=== PATIENT | female | born 1945 | race Caucasian/White ===

== ENCOUNTER → 2016-12-05 | Outpatient (CLI) | payer BC ==
[2016-12-05 13:31] LABS: BASO % 0.3 %; BASO ABS # 0.03 K/uL (0-0.2); COMPLETE YES; EOS % 1.1 %; IG% 0.1 %; LYMPH % 30.8 %; LYMPH ABS # 2.79 K/uL (1.2-3.4); MEAN CELL VOLUME 94.7 fL (80-100); MEAN CORPUSCULAR HEMOGLOBIN 30.3 pg (25-34); MEAN PLATELET VOLUME 11.2 fL (7.4-10.4); MONO % 5.4 %; NEUT % 62.3 %; PLATELET COUNT 237 K/uL (130-400); RED BLOOD COUNT 4.33 M/uL (4.2-5.4); WHITE BLOOD COUNT 9.07 K/uL (4.8-10.8)
[2016-12-05 13:51] LABS: ESTIMATED AVERAGE GLUCOSE 120 mg/dl; HA1C FLAG Normal (Normal)
[2016-12-05 13:53] LABS: AST/SGOT 12 U/L (15-37); BLOOD UREA NITROGEN 15 mg/dl (7-18); BUN/CREATININE RATIO 23.1 (10-20); CALCIUM 8.7 mg/dl (8.5-10.1); CARBON DIOXIDE 34 mmol/L (21-32); CHLORIDE 103 mmol/L (98-107); CREATININE 0.66 mg/dl (0.60-1.20); GLUCOSE 108 mg/dl (70-99); POTASSIUM 3.6 mmol/L (3.5-5.1); SODIUM 142 mmol/L (136-145)
[2016-12-05 13:58] LABS: ALB/GLOB RATIO 1.2 (0.9-2); ALKALINE PHOSPHATASE 73 U/L (45-117); ALT/SGPT 16 U/L (12-78); CHOLESTEROL 144 mg/dl (0-200); CHOLESTEROL/HDL RATIO 2.2; HDL CHOLESTEROL 65 mg/dl; LDL CHOLESTEROL CALCULATED 63 mg/dl; TRIGLYCERIDES 79 mg/dl (0-150); VERY LOW DENSITY LIPOPROT CALC 16 mg/dl
== END | disposition home or self-care (01) ==
LOC: C.LABMFLN 09:23
PROVIDERS: ATTEND Family Medicine
DX: I10 Essential (primary) hypertension (principal); E78.5 Hyperlipidemia, unspecified; R73.01 Impaired fasting glucose

== ENCOUNTER → 2017-04-10 | Outpatient (CLI) | payer BC | END | disposition home or self-care (01) | LOC: C.PAPS 07:56 | PROVIDERS: ATTEND Family Medicine | DX: Z12.4 Encounter for screening for malignant neoplasm of cervix (principal); R87.616 Satisfactory cervical smear but lacking transformation zone ==

== ENCOUNTER → 2017-10-11 | Outpatient (CLI) | payer BC | END | disposition home or self-care (01) | LOC: C.LABMFLN 18:18 | PROVIDERS: ATTEND Family Medicine | DX: R10.2 Pelvic and perineal pain (principal) ==

== ENCOUNTER → 2017-12-13 | Outpatient (CLI) | payer BC ==
[2017-12-13 18:04] LABS: BASO % 0.2 %; BASO ABS # 0.02 K/uL (0-0.2); EOS % 1.2 %; HEMATOCRIT 41.1 % (37-47); HEMOGLOBIN 13.1 g/dL (12.0-16.0); IG# 0.01 K/uL (0.00-0.02); LYMPH % 31.2 %; LYMPH ABS # 2.54 K/uL (1.2-3.4); MEAN CELL VOLUME 94.9 fL (80-100); MEAN CORPUSCULAR HEMOGLOBIN 30.3 pg (25-34); MEAN CORPUSCULAR HGB CONC 31.9 g/dl (32-36); MEAN PLATELET VOLUME 11.7 fL (7.4-10.4); MONO ABS # 0.41 K/uL (0.11-0.59); NEUT % 62.3 %; NEUT ABS # 5.07 K/uL (1.4-6.5); PLATELET COUNT 213 K/uL (130-400); RED CELL DISTRIBUTION WIDTH CV 13.7 % (11.5-14.5); RED CELL DISTRIBUTION WIDTH SD 47.9 fL (36.4-46.3); WHITE BLOOD COUNT 8.15 K/uL (4.8-10.8)
[2017-12-13 19:27] LABS: ALBUMIN 3.9 gm/dl (3.4-5.0); ALT/SGPT 17 U/L (12-78); AST/SGOT 16 U/L (15-37); BLOOD UREA NITROGEN 14 mg/dl (7-18); CALCIUM 8.8 mg/dl (8.5-10.1); CARBON DIOXIDE 31 mmol/L (21-32); CHOLESTEROL 137 mg/dl (0-200); CREATININE 0.68 mg/dl (0.60-1.20); GLUCOSE 102 mg/dl (70-99); POTASSIUM 3.4 mmol/L (3.5-5.1); SODIUM 139 mmol/L (136-145)
[2017-12-13 19:30] LABS: ALKALINE PHOSPHATASE 74 U/L (45-117); LDL CHOLESTEROL CALCULATED 55 mg/dl; TOTAL PROTEIN 7.4 gm/dl (6.4-8.2)
== END | disposition home or self-care (01) ==
LOC: C.LABMFLN 11:23
PROVIDERS: ATTEND Family Medicine
DX: I10 Essential (primary) hypertension (principal); E78.5 Hyperlipidemia, unspecified

== ENCOUNTER 2019-04-03 08:00 | Inpatient (IN) ==
[2019-03-14 18:13] LABS: Basophils # (auto) 0.01 K/uL (0-0.2); Basophils % (auto) 0.1 %; Eosinophils % (auto) 1.5 %; Hematocrit (blood only) 41.2 % (37-47); Hemoglobin 13.2 g/dL (12.0-16.0); Immature Granulocytes # (auto) 0.01 K/uL (0.00-0.02); Immature Granulocytes % (auto) 0.1 %; Lymphocytes # (auto) 2.31 K/uL (1.2-3.4); Lymphocytes % (auto) 34.5 %; Mean Corpuscular Hemoglobin 30.7 pg (25-34); Mean Corpuscular Volume 95.8 fL (80-100); Mean Platelet Volume 11.9 fL (7.4-10.4); Neutrophils # (auto) 3.86 K/uL (1.4-6.5); Neutrophils % (auto) 57.8 %; Platelet Count 198 K/uL (130-400); RDW Coefficient of Variation 13.4 % (11.5-14.5); RDW Standard Deviation 46.6 fL (36.4-46.3); White Blood Count 6.69 K/uL (4.8-10.8)
[2019-03-14 18:21] LABS: Appearance Urine Cloudy (Clear); Bacteria Urine Automated 1+ (Negative); Bilirubin Urine Negative (Negative); Blood Urine Negative (Negative); Color Urine Yellow; Epithelial Cell Urine Auto >30 /lpf (0-5); Glucose Urine UA Negative (Negative); Ketones Urine Negative (Negative); Leukocyte Esterase Urine Negative (Negative); Nitrite Urine Negative (Negative); Protein Urine Negative (Negative); RBC Urine Automated 0-4 /hpf (0-4); Specific Gravity Urine 1.017 (1.000-1.030); Urobilinogen Urine Negative (Negative); pH Urine 7.5 (4.5-7.5)
[2019-03-14 18:24] LABS: BUN Creatinine Ratio 24.5 (10-20); Blood Urea Nitrogen 16 mg/dl (7-18); Calcium 8.8 mg/dl (8.5-10.1); Carbon Dioxide 32 mmol/L (21-32); Chloride 101 mmol/L (98-107); Est GFR (African American) 99.5; Est GFR (Non-African American) 85.8; Glucose 80 mg/dl (70-99); Potassium 3.5 mmol/L (3.5-5.1); Sodium 140 mmol/L (136-145)
[2019-03-14 18:25] LABS: Partial Thromboplastin Time 27.3 Seconds (21.0-31.0); Prothrombin Time 10.4 Seconds (9.0-12.0)
[2019-03-15 07:47] LABS: Estimated Average Glucose 120 mg/dl; Hemoglobin A1C 5.8 % (4.5-5.6)
--- NOTE | 2019-03-20 12:52 | Anesthesiology Consultation ---
Date of Service March 20, 2019 Assessment & Plan (1) Encounter for pre-operative examination: L Hip ORIF 06/30/18 - MAC #3, ETT#7.5, Grade 3 View - used Cricoid pressure - atraumatic x 1 attempt L JANET 06/01/18 -- SAB without complications Chart Review Chart Review: Acceptable Risk for Surgery and Patient NOT seen in Pre Admission Testing History Surgery Operation Date: 04/03/19 11:10 Proposed Procedures p Right Total Hip Arthroplasty - Donald Mckoy MD Height/Weight Height: 5 ft 4.5 in Weight: 71.668 kg Allergies Allergy/AdvReac Type Severity Reaction Status Date / Time [facility] [[facility] Allergy Unknown Swelling Verified 03/01/19 10:32 of Lip/Tongue/Throat Influenza Virus Vaccines Allergy "STIRS UP Verified 03/01/19 10:32 ARTHRITIS" morphine AdvReac Unknown N/V Verified 03/01/19 10:32 Medications Home Medications Medication Instructions Recorded Confirmed Last Taken nitroglycerin 1 tab SUBLINGUAL UD PRN 05/08/18 03/01/19 Unknown propranolol 120 mg PO QAM 05/08/18 03/01/19 11/12/18 simvastatin 20 mg PO QPM 05/08/18 03/01/19 11/11/18 aspirin [Aspir-81] 81 mg PO DAILY 11/12/18 03/01/19 11/12/18 bumetanide 1 mg PO QAM 11/12/18 03/01/19 11/12/18 polyethylene glycol 3350 [Miralax] 17 g PO Q2D 11/12/18 03/01/19 Unknown quinapril 40 mg PO QAM 11/12/18 03/01/19 11/12/18 tramadol 50 mg tablet 100 mg PO BID PRN #120 tab 03/11/19 Unknown Past Medical History Medical History Hyperlipidemia Generalized osteoarthritis of multiple sites Benign essential hypertension Benign colonic polyp Aortic aneurysm Mild aortic root and ascending aortic dilatation per 04/2017 echo. CAD (coronary artery disease) Acute posterior [place] 05/2009, though subsequent cath showed angiographically normal coronary arteries. High cholesterol "BORDERLINE" History of angina 2008...CATH - NO FINDINGS - NO ANGINA EPISODES SINCE History of hip fracture LEFT 06/30/18 - MAC #3, ETT#7.5, Grade 3 View - used Cricoid pressure - atraumatic x 1 attempt Hypertension Kidney stones Past Surgical History Surgical History History of cardiac cath 2008 - CP - no stents/angioplasty - angiographically normal coronaries - follows w/ [facility] cardiology q yearly. History of cataract surgery History of colonoscopy History of hip surgery LEFT FOR FX/"ELIESER AND WIRES" History of surgery PERIODONTAL History of total left hip arthroplasty 06/01/18 under SAB without complications Social History Smoking Status: Former smoker tobacco type: cigarettes Smoking cigarettes per day: socially < 1pack per week for ~15 yrs Do You Dip or Chew Tobacco: No Hx Alcohol Use: Yes Alcohol type: wine alcohol intake frequency: a few times a week Hx Substance Use: No substance use type: does not use Testing Laboratory Results 03/14/19 13:03 03/14/19 13:03 PT 10.4 Seconds (9.0-12.0) 03/14/19 13:03 INR 1.0 (0.9-1.1) 03/14/19 13:03 APTT 27.3 Seconds (21.0-31.0) 03/14/19 13:03 Hemoglobin A1c 5.8 % (4.5-5.6) H 03/14/19 13:03 Urine Color Yellow 03/14/19 13:19 Urine Appearance Cloudy (Clear) A 03/14/19 13:19 Urine pH 7.5 (4.5-7.5) 03/14/19 13:19 Ur Specific [place] 1.017 (1.000-1.030) 03/14/19 13:19 Urine Protein Negative (Negative) 03/14/19 13:19 Urine Glucose (UA) Negative (Negative) 03/14/19 13:19 Urine Ketones Negative (Negative) 03/14/19 13:19 Urine Nitrite Negative (Negative) 03/14/19 13:19 Ur Leukocyte Esterase Negative (Negative) 03/14/19 13:19 Urine WBC (Auto) 1-5 /hpf (0-5) 03/14/19 13:19 Urine RBC (Auto) 0-4 /hpf (0-4) 03/14/19 13:19 U Hyaline Cast (Auto) 1-5 /lpf (0-5) 03/14/19 13:19 U Epithel Cells (Auto) >30 /lpf (0-5) H 03/14/19 13:19 Urine Bacteria (Auto) 1+ (Negative) H 03/14/19 13:19 Blood Type B Positive 03/14/19 13:03 Antibody Screen NEGATIVE 03/14/19 13:03 03/14/19 13:19 Urine Culture - Final Urine,Clean Catch More than three types of organisms present, all low counts mixed probable skin ramses. No further identifications or sensitivities to follow. Surgeon flagged re: + UA Electrocardiogram Date: 06/30/18 Findings: + ST @ (105) Poor data quality, interpretation may be adversely affected. Sinus tachycardia with short MT with frequent PVCs. When compared with ECG of 05/15/18, there are now PVCs. Chest X-Ray Date: 05/15/18 Findings: + NAD Echocardiogram Date: 04/27/17 EF: 65-70% LV Function: normal Other Findings: + LVH (Moderate) and + diastolic dysfunction (Grade I) Normal biventricular systolic function. Mild LAD. Trace to mild AI and TR. Normal estimated RVSP. Mild aortic root and ascending aortic dilatation. Compared to echo from 04/16/15 no significant interval change.
--- NOTE | 2019-04-02 21:59 | History and Physical Report ---
DATE OF ADMISSION: 04/03/2019 CHIEF COMPLAINT: Chronic right hip pain. HISTORY OF PRESENT ILLNESS: This is a 74-year-old female patient of Dr. Mckoy'neda complaining of chronic right hip pain, longstanding, now progressively getting worse. The patient has failed conservative treatment including acetaminophen, tramadol, and the use of a walker. The patient has increased pain with weightbearing activities and her pain does interfere with her activities of daily living. The patient has been diagnosed with end-stage osteoarthritis in the right hip per clinical and radiographic exams. The patient wished to proceed with a right total hip arthroplasty. PAST MEDICAL HISTORY: Angina, hypertension, hypercholesterolemia, osteoarthritis, and kidney stones. SOCIAL HISTORY: Nonsmoker, occasional drinker. PAST SURGICAL HISTORY: Cataract, left hip replacement, ORIF of left hip. FAMILY HISTORY: Noncontributory. REVIEW OF SYSTEMS: Chronic right hip pain. Otherwise, denies any shortness of breath, chest pain, nausea, vomiting, or any other joint complaints. MEDICATIONS: 1. Quinapril 40 mg daily. 2. Simvastatin 20 mg daily. 3. Bumetanide 1 mg daily. 4. Aspirin 81 mg daily. 5. Tramadol 50 mg twice every 8 hours as needed. 6. Propranolol 120 mg daily. 7. Nitroglycerin 0.4 mg sublingual tablets as needed. ALLERGIES: NORVASC, FLU VIRUS VACCINE, AND MORPHINE. PHYSICAL EXAMINATION: GENERAL: Well-developed, well-nourished, 74-year-old female in no acute distress. She is alert and oriented x3 and pleasant. HEENT: Normocephalic, atraumatic. Extraocular motions are intact. Pupils are equal and reactive to light. HEART: Regular rate and rhythm, no murmurs. LUNGS: Clear. ABDOMEN: Soft, nontender, bowel sounds present. EXTREMITIES: Right hip, no flexion contracture. She has pain with ambulation. She has pain with log rolling. She has pain with passive range of motion at 90/90 degrees of flexion. She has 5/5 strength with pain in her right lower extremity. NEUROLOGIC: Neurovascularly, she is intact in her right lower extremity. DIAGNOSES: Right hip end-stage osteoarthritis, history of angina, hypertension, hypercholesterolemia, osteoarthritis, and kidney stones. PLAN: The patient was advised of her diagnosis. Indications, risks, benefits, postop course have all been reviewed. The patient wished to proceed with a right total hip arthroplasty. Necessary consent forms, preoperative testing and clearances will be obtained.
[~2019-04-03 08:00] MED LIST: ACETAMINOPHEN 500 MG TAB PO SCH; BUPIVACAINE 0.5 % 5 MG/1 ML PF 10ML VIAL ONE; CEFAZOLIN 1000MG 1,000 MG/7.5 ML SYR IV SCH; CeleBREX 200 MG CAP PO SCH; FAMOTIDINE 20 MG TAB PO SCH; GABAPENTIN 300 MG CAP PO SCH; LR 500ML BOLUS, THEN 15ML/HR IV SCH; METOCLOPRAMIDE HCL 10 MG TABLET PO SCH; ROPIVACAINE 0.5% HCL/PF 150 MG, BUPIVACAINE 0.5% MPF 30 ML, EPINEPHrine 30MG/30ML (OR U... INSTIL SCH; TRANEXAMIC ACID 1,000 MG **IV Intra-op IV SCH; TRANEXAMIC ACID 1,000 MG **IV Pre-op IV SCH; dexAMETHasone 4 MG TAB PO SCH
[2019-04-03] MEDS ORDERED: LIDOCAINE HCL 2% 2 ML VIAL/AMP(20MG/ML) INFIL ONE (08:30)
[2019-04-03] MEDS ORDERED: ONDANSETRON INJ 2 MG/ML 2 ML VIAL ONE (08:30)
[2019-04-03] MEDS ORDERED: DEXAMETHASONE SOD INJ 4 MG/ML VIAL ONE (08:30)
[2019-04-03] MEDS ORDERED: GLYCOPYRROLATE 0.2 MG/ML VIAL ONE (08:30)
[2019-04-03] MEDS ORDERED: PROPOFOL IV EMULSION 10 MG/ML 20 ML VIAL IV ONE ×2 (08:30→12:10)
[2019-04-03] MEDS ORDERED: MIDAZOLAM HCL 1 MG/ML 2ML VIAL ONE (08:31)
[2019-04-03] MEDS ORDERED: KETAMINE HCL INJ 50 MG/ML 10 ML VIAL ONE (08:31)
--- NOTE | 2019-04-03 08:39 | History & Physical Bridge Note ---
Date of Service April 03, 2019 History & Physical Bridge Note I have examined the patient, reviewed the History & Physical and in the interval since the performance of the History & Physical I have noted the following changes of clinical significance: no changes noted
[2019-04-03] MEDS ORDERED: fentaNYL citrate 100 MCG/2 ML VIAL ONE (09:05)
[2019-04-03] MEDS ORDERED: BACITRACIN INJ 50,000 UNIT VIAL ONE (09:14)
[2019-04-03] MEDS ORDERED: ORTHO JOINT ANESTHETIC ONE (09:14)
[2019-04-03] MEDS ORDERED: ePHEDrine sulfate 50 MG/ML SYR ONE (13:57)
--- NOTE | 2019-04-03 14:15 | Operative Report ---
Post Operative Report Pre & Post Diagnosis Operation Date: 04/03/19 11:10 Pre-Op Diagnosis: Right Hip Osteoarthritis Post-Op Diagnosis: Right Hip Osteoarthritis Procedure Operation Date: 04/03/19 11:10 Actual Procedures p Right Total Hip Arthroplasty-Uncemented(Right) - Donald Mckoy MD Surgeon Donald Mckoy MD Garage Manager Toney WATKISN Estimated Blood Loss 300 Findings Consistent with Post-Op Diagnosis Specimens Femoral head Drains 2 Hemovac Anesthesia Type Spinal MAC Complications none Disposition Accompanied Patient To Recovery: No Disposition: Recovery Room Indications 74-year female progressive osteoarthritis in her right hip. She has severe osteoarthritis with superolateral subluxation flattening of the femoral head and acetabulum. [id number] subchondral cystic changes subchondral sclerosis severe end-stage osteoarthritis Description of Procedure Patient taken to the operating room and anesthetized under spinal anesthesia and sedation. Patient was placed supine on the operating table. Exam of the involved extremity demonstrated patient had a 25 to 30 degree flexion contracture of her hip she had flexion to 100 degrees she had 20 degrees of internal and external rotation.The patient was placed on a sacral pad and the involved leg was placed on a foot bump to flex knee 90 and hip 60. A Hardi ng-type approach was performed to the hip. A longitudinal lateral incision was made over the hip. The skin was incised sharply. The fat was divided down to the fascia. Subcutaneous bleeders are cauterized. Trochanteric bursa was resected. A split was made in the gluteus medius muscle between the anterior 40% and posterior 60%. The minimus was divided longitudinally reflected off the underlying capsule. The capsule was incised down to the hip joint. An incision was made through the gluteus medius leaving a cuff of tendon for repair on the greater trochanter. The vastus lateralis was split longitudinally for about 3 cm. A muscular capsular flap was elevated off the hip. The hip was dislocated with use of bone hook and with flexion and external rotation of the hip. The femoral neck cut was made approximately 15 mm proximal to the lesser trochanter in neutral anteversion. Head and neck fragment were removed. The femoral head demonstrated markedly deformed head of the feet femur with large osteophytes eburnated bone and synovitis consistent with inflammatory arthritis. A self- retaining superior tractor was impacted into the ilium, a blunt Tello retractor was placed anteriorly a double angled inferior retractor was placed on the ischium. The acetabulum demonstrated significant deformity bony buildup medially with lateral displacement of the joint with flattening of the superior aspect of the acetabulum and circumferential labral tearing and osteophytes. The acetabular labrum was resected all osteophytes were resected.The soft tissue in the acetabular fossa was resected. An anterior capsular release was performed. Some the capsule was resected for exposure. It was noted there is very thickened capsular tissue. The first reamer size 46 was used to medialize reaming to the inner table and then sequential reamers for the acetabulum were used in 2 mm increments up to a size 56. I used the [employer] total hip arthroplasty system using a PSL type cup. Trial reduction demonstrated a 56 millimeter cup was the appropriate size and fit. The placement of the final implant was performed after irrigating the acetabulum with antibiotic solution with pulsatile lavage. The position of the cup was approximately 15 anteversion 45 abduction. Good fixation was performed. Two 6.5 mm cancellus screws were placed in the posterior superior quadrant for further fixation through the cup. The acetabular liner was impacted into position. The 36 mm X3 10 degree polyethylene F insert acetabular liner was used.The Orthomix coctail injected into the capsule around the acetabular component and deeper muscles. The retractors removed and attention was taken to the femur. The femur was exposed with flexion external rotation. A Canal reamer was used followed by sequential tapered Accolade 2 broaches up to a size 5. It was noted that initially she appeared to be quite osteoporotic as the initial broaches was found to the canal but as we approach the 5 we had excellent fit and fill. Trial reduction was performed with a 127 degree neck angle based on preoperative templating. A -5 neck length gave equal stable range of motion through full flexion flexion adduction and internal rotation and extension and external rotation. Patient had prior revision hip replacement on her left leg and I presume this was shorter through the revision and fracture that she had. The trials removed and after irrigation again and the final implant was impacted which was the Accolade 2 size 127 degree neck angle size 5. The Biolox ceramic head size 36-5 was used. After final implants replaced the reduction was noted to be stable. Betadine soak was used per protocol. 2 drains were placed deep. These were brought out laterally and connected to Hemovac. The minimus was closed with interrupted [id number] #1 Vicryl sutures. The medius was closed with transosseous #5 FiberWire sutures using Fausto Huang suture technique. Lateral row soft tissue repair was performed with figure of 8 #2 FiberWire sutures. The medius split was closed with interrupted [id number] #1 Vicryl sutures. The vastus lateralis was closed with interrupted figure of eight #1Vicryl sutures. The fascia barbara was closed with interrupted figure of eight #1 Vicryl sutures. The fat was closed with [id number] #2 Vicryl sutures. Skin was closed with beni and sterile dressings were applied. The patient tolerated procedure well. Toney WATKINS my physician captain assistant assisted me in the procedure with patient positioning And draping soft tissue retraction instrument management suture management and assisted in the outer layer closure and will participate in the postoperative care the patient. I attest to the content of the Intraoperative Record and any orders documented therein. Any exceptions are noted below.
--- NOTE | 2019-04-03 15:15 | XRay Report ---
XR hip 1V RT w pelvis CLINICAL HISTORY: 74 years-old Female presenting with IN PACU - A/P PELVIS and LATERAL HIP . TECHNIQUE: Single frontal view of the pelvis and crosstable lateral view of the right hip were obtain ed. COMPARISON: 07/01/2018. FINDINGS: Postsurgical changes of total right hip arthroplasty now evident area surgical drain in place. Expect ed soft tissue emphysema. No malalignment. No periprosthetic fracture. Redemonstration of the total l eft hip arthroplasty. Bony pelvis otherwise intact allowing for suspected underlying osteopenia. IMPRESSION: Expected postsurgical appearance status post total right hip arthroplasty. Electronically signed by: Hernesto Odom M.D. 04/03/2019 3:14 PM
--- NOTE | 2019-04-03 15:37 | Anesthesiology Progress Note ---
Date of Service April 03, 2019 Anesthesia Post Procedure Vital Signs Vital Signs: Temp Pulse Pulse Resp BP Pulse Ox 04/03/19 15:20 37.1 C 78 16 138/74 96 04/03/19 15:10 37.1 C 99 H 19 132/79 95 04/03/19 15:00 37.1 C 98 H 14 141/84 H 96 04/03/19 14:50 37.5 C 98 H 13 139/80 95 04/03/19 14:40 37.5 C 101 H 17 148/88 H 98 04/03/19 14:32 37.5 C 99 H 16 130/75 98 04/03/19 08:46 36.6 C 90 16 164/95 H 99 Pain Intensity Right Leg: Pain Intensity: 0 Transfer of Care Handoff Completed per policy Notes Mental Status: alert / awake / arousable Patient Amnestic to Procedure: Yes Nausea / Vomiting: adequately controlled Pain: adequately controlled Airway Patency, RR, SpO2: stable & adequate BP & HR: stable & adequate Hydration State: stable & adequate Neuraxial Anesthesia: was administered and sensory block is resolving Anesthetic Complications: no major complications apparent
[2019-04-03] MEDS ORDERED: BISACODYL 10 MG SUPP PR PRN (15:42)
[2019-04-03] MEDS ORDERED: ONDANSETRON INJ 2 MG/ML 2 ML VIAL IV PRN (15:42)
[2019-04-03] MEDS ORDERED: MAGNESIUM HYDROXIDE SUSP 30 ML UDC PO PRN (15:42)
[2019-04-03] MEDS ORDERED: NALOXONE HCL 0.4 MG/1 ML VIAL/CARP IV PRN (15:42)
[2019-04-03] MEDS ORDERED: SODIUM CHLORIDE 0.9% 1000ML 1,000 ML IV SCH (15:42)
[2019-04-03] MEDS ORDERED: HYDROmorphone INJ 0.5 MG/0.5 ML SYR IV PRN (15:42)
[2019-04-03] MEDS ORDERED: NITROGLYCERIN SL 0.4 MG/TAB TAB SL PRN (15:42)
--- NOTE | 2019-04-03 17:13 | Hospitalist Consultation ---
Date of Consultation April 03, 2019 Assessment & Plan (1) History of total right hip arthroplasty: -Pain management bowel regimen per primary team -PT/OT consults - planning outpt home health service -Antiemetics on board -Follow a.m. CBC to r/o Hgb/hct loss (2) Benign essential hypertension: -Continue propranolol 100 mg every morning, quinapril 40 mg every morning (3) Hyperlipidemia: -Continue simvastatin 20 mg every afternoon (4) Aortic aneurysm: -Last echo completed April 2017, showing mild aortic root and ascending aortic dilation on echo (5) CAD (coronary artery disease): -Nonobstructive -Continue ASA, statin, beta-blockade, DARIN (6) DVT prophylaxis: -Teds, ASA 81 mg BID Disposition: From home Thank you for involving us in the care of Mrs. Urban. Please do not hesitate to call with questions or concerns. At this time medicine service will sign off. Supervising Physician Co-Signing Physician Notes I have seen the patient with Zaida Puckett and agree with exam , assessment and plan. History of Present Illness Reason for Consultation: -Medical management Requesting Physician: Dr. Nichole Attending Physician: Donald Mckoy MD History of Present Illness This is a 74-year-old female with PMHx of CAD, HTN, HLD, mild aortic root and ascending aortic dilation, DJD, osteoarthritis, remote tobacco use, who underwent an elective Right total hip arthroplasty by Dr. Nichole on 04/03/2019. She reports doing well curently. No pain in her hip, no numbness or tingling. She has not yet eaten anything, but denies feeling nauseous. She is planning for home health services with outpatient PT after discharge. Allergies Allergy/AdvReac Type Severity Reaction Status Date / Time amlodipine [From [facility]] Allergy Unknown Swelling Verified 04/03/19 08:41 of Lip/Tongue/Throat Influenza Virus Vaccines Allergy "STIRS UP Verified 04/03/19 08:41 ARTHRITIS" morphine AdvReac Unknown N/V Verified 04/03/19 08:41 Home Medications Home Medications Medication Instructions Recorded Confirmed Type nitroglycerin 1 tab SUBLINGUAL UD PRN 05/08/18 04/03/19 History propranolol 120 mg PO QAM 05/08/18 04/03/19 History simvastatin 20 mg PO QPM 05/08/18 04/03/19 History aspirin [Aspir-81] 81 mg PO DAILY 11/12/18 04/03/19 History bumetanide 1 mg PO QAM 11/12/18 04/03/19 History polyethylene glycol 3350 [Miralax] 17 g PO Q2D 11/12/18 04/03/19 History quinapril 40 mg PO QAM 11/12/18 04/03/19 History tramadol 50 mg tablet 100 mg PO BID PRN #120 tab 03/11/19 04/03/19 Rx Patient History Medical History Hyperlipidemia Generalized osteoarthritis of multiple sites Benign essential hypertension Benign colonic polyp Aortic aneurysm Mild aortic root and ascending aortic dilatation per 04/2017 echo. CAD (coronary artery disease) Acute posterior CT 05/2009, though subsequent cath showed angiographically normal coronary arteries. High cholesterol "BORDERLINE" History of angina 2008...CATH - NO FINDINGS - NO ANGINA EPISODES SINCE History of hip fracture LEFT 06/30/18 - MAC #3, ETT#7.5, Grade 3 View - used Cricoid pressure - atraumatic x 1 attempt Hypertension Kidney stones Surgical History History of cardiac cath 2008 - CP - no stents/angioplasty - angiographically normal coronaries - follows w/ [facility] cardiology q yearly. History of cataract surgery History of colonoscopy History of hip surgery LEFT FOR FX/"ELIESER AND WIRES" History of surgery PERIODONTAL History of total left hip arthroplasty 06/01/18 under [facility]AB without complications Social History Preferred Language: Arabic Communication Ability: Effective Visual Impairment: No Limitations Bar Steward Required: No Beliefs That Will Affect Care: None marital status: Current Living Situation: Spouse Other Information That Helps Us Care for You: No Feels Safe at Home: Yes Safety Concerns: Feels Safe At This Time Smoking Status: Former smoker Tobacco Type: cigarettes ; Cigarettes Per Day: socially < 1pack per week for ~15 yrs ; Do You Dip or Chew Tobacco: No ; Second Hand Exposure: No ; Tobacco Cessation Education Requested by Patient: No Hx Alcohol Use: Yes Alcohol type: wine Hx Substance Use: No Review of Systems Review of Systems: Constitutional: No fever, sweats or chills Eyes: No diplopia, no worsening or blurred vision ENT: normal hearing, no trouble swallowing Respiratory: No cough, sputum, dyspnea at rest or on exertion Cardiovascular: No chest pain, tightness or palpitations Abdomen: No pain, nausea, vomiting, diarrhea or constipation Musculoskeletal: No joint pain, calf pain, swelling Neurologic: No weakness, numbness/tingling, or balance problems Psychiatric: No anxiety or depression Skin: No rash or itch Physical Exam Physical Exam: General: awake, alert, no apparent distress Head: Normocephalic, atraumatic ENT: PERRL, EOMI, no pharyngeal exudate, mucous membranes moist Chest: Clear to auscultation, on room air, no adventitious breath sounds Cardiac: Regular rate and rhythm, no murmur, no JVD, normal peripheral pulses, good capillary refill Abdominal: NABS x 4 quadrants, soft, nontender to palpation, no rebound, gu arding or tenderness Extremities: +R hip dressing c/d/i, hemovac in place, icepack on. Otherwise normal inspection, no peripheral edema or erythema, calfs nontender to palpation Psych: Normal mood and affect Neuro: AAO x 3, no motor deficits, speech is clear, no peripheral sensory deficits Results & Data Vital Signs (Past 12 Hours) Vital Signs Temp Pulse Pulse Resp BP Pulse Ox 04/03/19 16:37 36.4 C L 94 H 16 127/80 99 04/03/19 16:02 36.4 C L 96 H 16 139/84 96 04/03/19 15:53 36.6 C 98 H 18 129/75 94 04/03/19 15:20 37.1 C 78 16 138/74 96 04/03/19 15:10 37.1 C 99 H 19 132/79 95 04/03/19 15:00 37.1 C 98 H 14 141/84 H 96 04/03/19 14:50 37.5 C 98 H 13 139/80 95 04/03/19 14:40 37.5 C 101 H 17 148/88 H 98 04/03/19 14:32 37.5 C 99 H 16 130/75 98 04/03/19 08:46 36.6 C 90 16 164/95 H 99 PG Care Time/CCT Total # of Minutes Spent Total Time Spent with Patient: Total time spent is greater than 50% in coordination of care (as documented) at patient's floor/unit and/or counseling patient:
[2019-04-03] MEDS: CEFAZOLIN 1000MG 1,000 MG/7.5 ML SYR IV SCH (19:23)
[2019-04-03] MEDS: DOCUSATE SODIUM 100 MG CAP PO SCH (20:07)
[2019-04-03] MEDS: ASPIRIN 81 MG ECTAB PO SCH (20:07)
[2019-04-03] MEDS: SENNA 8.6 MG TAB PO SCH (20:08)
[2019-04-03] MEDS: SIMVASTATIN 20 MG TAB PO SCH (20:09)
[2019-04-03] MEDS: CeleBREX 200 MG CAP PO SCH (20:09)
[2019-04-03] MEDS ORDERED: POLYETHYLENE (MIRALAX) 17 GM PACK PO SCH (21:00)
[2019-04-03] MEDS: ACETAMINOPHEN 500 MG TAB PO SCH (21:29)
[2019-04-03] MEDS: OXYCODONE HCL IR 5 MG TAB (IMMEDIATE RELEASE) PO PRN (23:27)
[2019-04-04] MEDS: CEFAZOLIN 1000MG 1,000 MG/7.5 ML SYR IV SCH ×2 (01:22→01:24)
[2019-04-04] MEDS: ACETAMINOPHEN 500 MG TAB PO SCH ×3 (05:39→21:09)
[2019-04-04 08:09] LABS: Basophils # (auto) 0.01 K/uL (0-0.2); Basophils % (auto) 0.1 %; Hematocrit (blood only) 30.5 % (37-47); Hemoglobin 10.2 g/dL (12.0-16.0); Immature Granulocytes # (auto) 0.03 K/uL (0.00-0.02); Immature Granulocytes % (auto) 0.2 %; Lymphocytes # (auto) 1.62 K/uL (1.2-3.4); Lymphocytes % (auto) 12.7 %; Mean Corpuscular Hemoglobin 31.1 pg (25-34); Mean Corpuscular Hgb Conc 33.4 g/dL (32-36); Mean Platelet Volume 10.9 fL (7.4-10.4); Monocytes # (auto) 0.89 K/uL (0.11-0.59); Neutrophils # (auto) 10.23 K/uL (1.4-6.5); Platelet Count 173 K/uL (130-400); Red Blood Count 3.28 M/uL (4.2-5.4); White Blood Count 12.78 K/uL (4.8-10.8)
--- NOTE | 2019-04-04 08:20 | Orthopedic Progress Note ---
Date of Service April 04, 2019 Assessment & Plan (1) History of total right hip arthroplasty: POD #1, Right JANET PT/ OT w precautions DVT proph- ASA D/C plans- home w HH As per medicine. Subjective POD #1, Doing well. Denies SOB, CP, N/V. Pain controlled well. Would like HH. Physical Exam Physical Exam: Right hip silverlon in tact, drain in tact. No drainage, no erythema. No calf tenderness. Toes/ ankle mobile. A&Ox3. Results & Data Vital Signs (Past 12 Hours) Vital Signs Temp Pulse Resp BP Pulse Ox 04/04/19 07:12 36.6 C 79 18 122/69 95 04/04/19 03:52 36.5 C 98 H 16 106/63 96 04/03/19 23:23 36.5 C 96 H 16 127/77 96
[2019-04-04] MEDS: BUMETANIDE 1 MG TAB PO SCH (08:27)
[2019-04-04] MEDS: DOCUSATE SODIUM 100 MG CAP PO SCH ×2 (08:28→21:09)
[2019-04-04] MEDS: ASPIRIN 81 MG ECTAB PO SCH ×2 (08:28→21:09)
[2019-04-04] MEDS: CeleBREX 200 MG CAP PO SCH ×2 (08:28→21:09)
[2019-04-04] MEDS: MULTIVITAMIN TAB PO SCH (08:29)
[2019-04-04] MEDS: ENALAPRIL MALEATE 10 MG TAB PO SCH (08:29)
[2019-04-04] MEDS: PROPRANOLOL HCL 60 MG LA CAP PO SCH (08:29)
[2019-04-04 08:50] LABS: BUN Creatinine Ratio 27.8 (10-20); Calcium 8.4 mg/dl (8.5-10.1); Creatinine Clr Calc Pharmacy 61.8 ml/min; Est GFR (Non-African American) 71.6; Potassium 4.4 mmol/L (3.5-5.1)
[2019-04-04] MEDS: OXYCODONE HCL IR 5 MG TAB (IMMEDIATE RELEASE) PO PRN ×2 (13:01→21:03)
[2019-04-04] MEDS: SENNA 8.6 MG TAB PO SCH (21:09)
[2019-04-04] MEDS: SIMVASTATIN 20 MG TAB PO SCH (21:09)
[2019-04-05] MEDS: OXYCODONE HCL IR 5 MG TAB (IMMEDIATE RELEASE) PO PRN ×3 (01:43→11:18)
[2019-04-05] MEDS: ACETAMINOPHEN 500 MG TAB PO SCH (05:30)
[2019-04-05 05:56] LABS: Basophils # (auto) 0.02 K/uL (0-0.2); Basophils % (auto) 0.2 %; Eosinophils # (auto) 0.09 K/uL (0-0.5); Eosinophils % (auto) 0.7 %; Hematocrit (blood only) 29.8 % (37-47); Hemoglobin 9.8 g/dL (12.0-16.0); Immature Granulocytes # (auto) 0.02 K/uL (0.00-0.02); Immature Granulocytes % (auto) 0.2 %; Lymphocytes % (auto) 29.5 %; Mean Corpuscular Hemoglobin 30.9 pg (25-34); Mean Corpuscular Hgb Conc 32.9 g/dL (32-36); Mean Platelet Volume 10.4 fL (7.4-10.4); Monocytes # (auto) 0.85 K/uL (0.11-0.59); Monocytes % (auto) 6.6 %; Neutrophils % (auto) 62.8 %; Platelet Count 177 K/uL (130-400); RDW Coefficient of Variation 13.4 % (11.5-14.5); RDW Standard Deviation 45.4 fL (36.4-46.3); Red Blood Count 3.17 M/uL (4.2-5.4); White Blood Count 12.88 K/uL (4.8-10.8)
[2019-04-05 06:29] LABS: BUN Creatinine Ratio 29.3 (10-20); Calcium 8.2 mg/dl (8.5-10.1); Creatinine Clr Calc Pharmacy 69.7 ml/min; Est GFR (African American) 95.9; Est GFR (Non-African American) 82.7; Potassium 3.7 mmol/L (3.5-5.1)
--- NOTE | 2019-04-05 07:53 | Orthopedic Progress Note ---
Date of Service April 05, 2019 Assessment & Plan (1) History of total right hip arthroplasty: POD #2, Right JANET PT/ OT w precautions DVT proph- ASA D/C plans- home w HH today. As per medicine. Subjective POD #2, Doing well. Denies SOB, CP, N/V. Pain controlled well. Would like HH. Physical Exam Physical Exam: Right hip silverlon c/d/i, no erythema, no drainage, no calf tenderness, toes/ ankle mobile, A&Ox3. Results & Data Vital Signs (Past 12 Hours) Vital Signs Temp Pulse Resp BP Pulse Ox 04/05/19 06:24 36.7 C 69 18 104/63 92 04/04/19 22:32 36.5 C 76 16 135/70 95
[2019-04-05] MEDS: ENALAPRIL MALEATE 10 MG TAB PO SCH (08:25)
[2019-04-05] MEDS: PROPRANOLOL HCL 60 MG LA CAP PO SCH (08:25)
[2019-04-05] MEDS: BUMETANIDE 1 MG TAB PO SCH (08:25)
[2019-04-05] MEDS: MULTIVITAMIN TAB PO SCH (08:26)
[2019-04-05] MEDS: ASPIRIN 81 MG ECTAB PO SCH (08:26)
[2019-04-05] MEDS: CeleBREX 200 MG CAP PO SCH (08:26)
[2019-04-05] MEDS: DOCUSATE SODIUM 100 MG CAP PO SCH (08:26)
--- NOTE | 2019-04-17 10:32 | Discharge Summary ---
HISTORY OF PRESENT ILLNESS: This is a 74-year-old female patient of Dr. Mckoy'neda complaining of chronic right hip pain, longstanding, now progressively getting worse. The patient failed conservative treatment and elected to proceed with a right total hip arthroplasty. PAST MEDICAL HISTORY: Angina, hypertension, hypercholesterolemia, osteoarthritis, and history of kidney stones. POSTOPERATIVE COURSE: The patient underwent a right total hip arthroplasty on 04/03/2019. She was followed closely with medical consultation, DVT prophylaxis in the form of aspirin, physical therapy and pain control. The patient did very well postoperatively and was discharged home with home health on postoperative day #2. PHYSICAL EXAMINATION: On discharge, right hip Silverlon dressing was clean, dry and intact. There was no redness, streaking or drainage. She had no calf tenderness. Negative Homans sign. Toes and ankle were mobile. Neurologically and neurovascularly, she is intact in her right lower extremity. DIAGNOSES: Status post right total hip arthroplasty with a history of angina, hypertension, hypercholesterolemia, osteoarthritis, and kidney stones. PLAN: The patient was discharged home on postoperative day #2 with home health services. She will continue her preadmission medications with the addition of aspirin twice daily for DVT prophylaxis and the addition of pain medications. The patient will follow up as scheduled as an outpatient.
== END 2019-04-05 12:30 | disposition home health service (06) | DRG 470 ==
LOC: ASU 08:00 → 3E 14:33

== ENCOUNTER 2020-02-27 07:27 | Inpatient (IN) ==
--- NOTE | 2020-02-13 22:12 | PAT Medication Instructions ---
Medication Instructions Date of Service February 13, 2020 Home Medications Medication Instructions Recorded bumetanide 1 mg tablet 1 mg PO QAM #90 tab 04/11/19 propranolol 120 mg capsule,24 120 mg PO QAM #90 cap 04/11/19 hr,extended release quinapril 40 mg tablet 40 mg PO QAM #90 tab 04/11/19 simvastatin 20 mg tablet 20 mg PO QPM #90 tab 04/11/19 nitroglycerin 0.4 mg sublingual 0.4 mg SUBLINGUAL Q5M PRN #30 tab 05/31/19 tablet polyethylene glycol 3350 [Miralax] 17 g PO Q2D bumetanide 1 mg tablet 1 mg PO QAM propranolol 120 mg capsule,24 hr,extended release 120 mg PO QAM quinapril 40 mg tablet 40 mg PO QAM simvastatin 20 mg tablet 20 mg PO QPM aspirin 81 mg tablet,delayed release 81 mg PO DAILY nitroglycerin 0.4 mg sublingual tablet 0.4 mg SUBLINGUAL Q5M PRN acetaminophen [Tylenol Arthritis Pain] 1,300 mg PO DAILY omeprazole 40 mg PO QAM tramadol 50 mg PO DAILY PRN DO NOT take the morning of surgery polyethylene glycol 3350 [Miralax] 17 g PO Q2D quinapril 40 mg tablet 40 mg PO QAM bumetanide 1 mg tablet 1 mg PO QAM Take morning of surgery With a small sip of water, OTHERWISE NOTHING TO EAT OR DRINK AFTER MIDNIGHT: propranolol 120 mg capsule,24 hr,extended release 120 mg PO QAM aspirin 81 mg tablet,delayed release 81 mg PO DAILY nitroglycerin 0.4 mg sublingual tablet 0.4 mg SUBLINGUAL Q5M PRN (if needed) acetaminophen [Tylenol Arthritis Pain] 1,300 mg PO DAILY (if needed, may be taken up to four hours before surgery) omeprazole 40 mg PO QAM tramadol 50 mg PO DAILY PRN (if needed, may be taken up to four hours before surgery) Take evening before surgery simvastatin 20 mg tablet 20 mg PO QPM nitroglycerin 0.4 mg sublingual tablet 0.4 mg SUBLINGUAL Q5M PRN (if needed) acetaminophen [Tylenol Arthritis Pain] 1,300 mg PO DAILY (if needed) tramadol 50 mg PO DAILY PRN (if needed) Other Notes If you have any questions please call us at [phone] or [phone] or [phone] or [phone]
--- NOTE | 2020-02-14 14:13 | Anesthesiology Consultation ---
Date of Service February 14, 2020 Assessment & Plan (1) Encounter for pre-operative examination: COVID Status: As of 02/13 assessment, patient denies travel to endemic area, known exposure/sick contacts, or symptoms of COVID19. Patient instructed to follow strict social distancing guidelines, wear a mask in public and avoid travel for 14 days prior to surgery. Preoperative COVID19 testing to be completed prior to surgery (pt reports 10:30 at [facility] on 02/23). Patient made aware to self-isolate as much as possible between COVID testing and surgery. Cardiology Clearance 02/14/20 = "Patient is physically active on a daily basis and has not experienced any limiting cardiopulmonary symptoms. Patient has not had any angina pectoris or anginal equivalent symptoms, overt signs or symptoms of heart failure, nor has she had any palpitations or symptoms of dysrhythmia. She is currently in an ectopic atrial tachycardia at 100 bpm and she is completely asymptomatic. We discussed what this rhythm abnormality is, and I have reassured her it is quite benign. No further evaluation is necessary at this time. Based on her functional status without limiting cardiopulmonary symptoms, normal LV systolic function, and normal coronary arteries on cardiac shanda terization in the past -- Patient is an acceptable surgical risk to proceed with surgery as scheduled provided she take her usual dose of Propranolol 120 mg the morning of surgery with sips of water. Patient was advised to hold Quinapril on the morning of surgery. There is no need for further cardiac workup at this time. Chart Review Chart Review: Acceptable Risk for Surgery and Patient seen in Pre Admission Testing Teaching & Discussion Instructed NPO after midnight before surgery, except medications with 15 cc of water. Medication instructions provided according to the PAT guidelines. History Surgery Operation Date: 02/27/20 12:45 Proposed Procedures p Right Total Shoulder Arthroplasty - Donald Mckoy MD Height/Weight Height: 5 ft 4 in Weight: 91.4 kg Allergies Allergy/AdvReac Type Severity Reaction Status Date / Time amlodipine [From Norvasc] Allergy Unknown Swelling Verified 02/14/20 11:42 of Lip/Tongue/Throat Influenza Virus Vaccines Allergy "STIRS UP Verified 02/14/20 11:42 ARTHRITIS" morphine AdvReac Unknown N/V Verified 02/14/20 11:42 Medications Home Medications Medication Instructions Recorded Confirmed Last Taken polyethylene glycol 3350 [Miralax] 17 g PO Q2D 11/12/18 02/14/20 04/01/19 21:00 bumetanide 1 mg tablet 1 mg PO QAM #90 tab 04/11/19 02/14/20 Unknown propranolol 120 mg capsule,24 120 mg PO QAM #90 cap 04/11/19 02/14/20 Unknown hr,extended release quinapril 40 mg tablet 40 mg PO QAM #90 tab 04/11/19 02/14/20 Unknown simvastatin 20 mg tablet 20 mg PO QPM #90 tab 04/11/19 02/14/20 Unknown aspirin 81 mg tablet,delayed 81 mg PO DAILY 05/06/19 02/14/20 Unknown release nitroglycerin 0.4 mg sublingual 0.4 mg SUBLINGUAL Q5M PRN #30 tab 05/31/19 02/14/20 Unknown tablet acetaminophen [Tylenol Arthritis 1,300 mg PO DAILY 02/13/20 02/14/20 Unknown Pain] omeprazole 40 mg PO QAM 02/13/20 02/14/20 Unknown tramadol 50 mg PO DAILY PRN 02/13/20 02/14/20 Unknown Past Medical History Medical History Acid reflux Aortic root dilatation Ascending aorta dilatation Benign colonic polyp (Chronic) Benign essential hypertension (Chronic) Generalized osteoarthritis of multiple sites (Chronic) Hyperlipidemia (Chronic) Myocardial infarction Posterior TN 2008 with normal coronary arteries on cardiac cath. Exercise / Class Metabolic Activity II 4-5 Yardwork/Stairs/Walk up hill (Denies Cp or SOB with 1 FOS) Past Family History Family History Daughter Breast cancer Mother Coronary heart disease Hypertension Brother Hypertension Grandfather Malignant melanoma of skin Other No family history of adverse response to anesthesia Denies family history of Ovarian cancer Prostate cancer Myocardial infarction Colorectal cancer Past Surgical History Surgical History H/O total hip arthroplasty right History of cardiac cath 2008 - no stents/angioplasty - angiographically normal coronaries - follows w/ [facility] cardiology. [facility] History of cataract surgery bilateral History of colonoscopy History of hip surgery (Chronic) LEFT FOR FX/"ELIESER AND WIRES" History of total left hip arthroplasty 06/07 Past Anesthesia History No Hx of Anesthesia Complications and No Family Hx of Anesthesia Complications History of PONV No Hx of PONV and Hx of Motion Sickness Social History Smoking Status: Former smoker tobacco type: cigarettes Smoking cigarettes per day: quit 23 years ago Do You Dip or Chew Tobacco: No Hx Alcohol Use: Yes Alcohol type: wine alcohol intake frequency: 0-2 drinks per day (1 day) Hx Substance Use: No substance use type: does not use Review of Systems Pt denies any recent chest pain, shortness of breath, palpitations, cough, fever or URI. Physical Exam Vital Signs BP: 125/79 P: 99bpm SPO2: 97% RA T: 98.1 F R: 16 ENMT Mouth: + dentures (partial upper); no chipped teeth and no loose teeth Thyromental Distance: < 3.5 Finger Breadths (3) Mallampati Class: II Neck normal visual inspection; neck extension not limited Respiratory normal respiratory effort Auscultation: lungs clear to auscultation bilaterally Cardiovascular Rate/Rhythm: regular rhythm and + tachycardic Heart Sounds: no murmur Extremities: + edema (trace,wearing compression stockings) Testing Laboratory Results 02/14/20 14:23 02/14/20 14:23 PT 10.6 Seconds (9.0-12.0) 02/14/20 14:23 INR 1.0 (0.9-1.1) 02/14/20 14:23 APTT 26.5 Seconds (21.0-31.0) 02/14/20 14:23 Hemoglobin A1c 5.8 % (4.5-5.6) H 02/14/20 14:23 Urine Color Yellow 02/14/20 14:23 Urine Appearance Clear (Clear) 02/14/20 14:23 Urine pH 7.0 (4.5-7.5) 02/14/20 14:23 Ur Specific Carson 1.021 (1.000-1.030) 02/14/20 14:23 Urine Protein Negative (Negative) 02/14/20 14:23 Urine Glucose (UA) Negative (Negative) 02/14/20 14:23 Urine Ketones Negative (Negative) 02/14/20 14:23 Urine Nitrite Negative (Negative) 02/14/20 14:23 Ur Leukocyte Esterase Negative (Negative) 02/14/20 14:23 Blood Type B Positive 02/14/20 14:23 Antibody Screen NEGATIVE 02/14/20 14:23 Electrocardiogram Date: 02/14/20 Ectopic atrial pacemaker/tachycardia at 100 bpm. Compared to 06/30/18 tracing the current rhythm has replaced sinus tachycardia with a short MT interval. *Per Ashutosh Rockr in cardio note from 02/14/20 Chest X-Ray Date: 02/14/20 Findings: + NAD Echocardiogram Date: 06/18/19 EF: 65-70% Normal biventricular systolic function. Normal chamber dimensions. Trace aortic and tricuspid regurgitation. Mild aortic root and ascending aortic dilatation. Moderate concentric LVH. Compared to an echocardiogram of 04/27/2017, no significant change in the aortic root and ascending aortic dilatation. The dilatation remains mild. No significant change in aortic regurgitation between the 2 studies.
--- NOTE | 2020-02-14 14:54 | XRay Report ---
XR chest Pre-admission PA/Lat CLINICAL HISTORY: Preoperative chest COMPARISON STUDY: 05/15/2018 FINDINGS: The heart is the upper limits of normal in size. There is no failure. There is no focal pul monary consolidation. There are no pleural effusions.[ IMPRESSION: No active disease in the chest. ACT 112: Negative or not required by law. Electronically signed by: Seth Velazquez M.D. 02/14/2020 2:52 PM
[2020-02-14 16:14] LABS: Basophils # (auto) 0.02 K/uL (0-0.2); Basophils % (auto) 0.3 %; Eosinophils # (auto) 0.15 K/uL (0-0.5); Eosinophils % (auto) 1.9 %; Hematocrit (blood only) 39.7 % (37-47); Hemoglobin 12.5 g/dL (12.0-16.0); Immature Granulocytes # (auto) 0.01 K/uL (0.00-0.02); Immature Granulocytes % (auto) 0.1 %; Lymphocytes # (auto) 2.48 K/uL (1.2-3.4); Lymphocytes % (auto) 31.7 %; Mean Corpuscular Hemoglobin 30.5 pg (25-34); Mean Corpuscular Hgb Conc 31.5 g/dL (32-36); Mean Corpuscular Volume 96.8 fL (80-100); Monocytes % (auto) 6.4 %; Neutrophils # (auto) 4.67 K/uL (1.4-6.5); Neutrophils % (auto) 59.6 %; Platelet Count 205 K/uL (130-400); RDW Coefficient of Variation 13.4 % (11.5-14.5); RDW Standard Deviation 47.7 fL (36.4-46.3); White Blood Count 7.83 K/uL (4.8-10.8)
[2020-02-14 16:21] LABS: BUN Creatinine Ratio 24.2 (10-20); Est GFR (African American) 75.5; Est GFR (Non-African American) 65.2; Potassium 4.2 mmol/L (3.5-5.1)
[2020-02-14 16:24] LABS: Appearance Urine Clear (Clear); Bilirubin Urine Negative (Negative); Blood Urine Negative (Negative); Color Urine Yellow; Glucose Urine UA Negative (Negative); Ketones Urine Negative (Negative); Leukocyte Esterase Urine Negative (Negative); Nitrite Urine Negative (Negative); Protein Urine Negative (Negative); Specific Gravity Urine 1.021 (1.000-1.030); Urobilinogen Urine Negative (Negative)
[2020-02-14 16:31] LABS: Partial Thromboplastin Ratio 0.9; Partial Thromboplastin Time 26.5 Seconds (21.0-31.0); Prothrombin Time 10.6 Seconds (9.0-12.0)
[2020-02-15 07:15] LABS: Estimated Average Glucose 120 mg/dl; Hemoglobin A1C 5.8 % (4.5-5.6)
--- NOTE | 2020-02-26 18:33 | History and Physical Report ---
DATE OF ADMISSION: 02/27/2020 CHIEF COMPLAINT: Chronic right shoulder pain. HISTORY OF PRESENT ILLNESS: This is a 75-year-old female patient of Dr. Mckoy'neda complaining of chronic right shoulder pain, longstanding, now progressively getting worse. The patient has failed conservative treatment. The patient has increased pain with activities of daily living. She has been diagnosed with end-stage osteoarthritis per clinical and radiographic exams and wishes to proceed with a right total shoulder arthroplasty. PAST MEDICAL HISTORY: Angina, hypertension, hypercholesterolemia, osteoarthritis, acid reflux, kidney stones. SOCIAL HISTORY: Nonsmoker, occasional drinker. PAST SURGICAL HISTORY: Bilateral hip surgery and femur surgery. FAMILY HISTORY: Noncontributory. REVIEW OF SYSTEMS: Chronic right shoulder pain and decreased function. Otherwise, denies any shortness of breath, chest pain, nausea, vomiting or any other joint complaints. MEDICATIONS: 1. Quinapril 40 mg daily. 2. Simvastatin 20 mg daily. 3. Bumetanide 1 mg daily. 4. Aspirin 81 mg daily. 5. Tramadol 50 mg as needed. 6. Propranolol 120 mg daily. 7. Nitroglycerin 0.4 mg sublingual tablet as needed. 8. MiraLax 17 g per dose in water as needed. 9. Extra Strength Tylenol 500 mg twice every 6 hours as needed. 10. Omeprazole 40 mg daily. ALLERGIES: AMLODIPINE, FLU VIRUS VACCINE AND MORPHINE. PHYSICAL EXAMINATION: GENERAL: Well-developed, well-nourished 75-year-old female in no acute distress. She is alert and oriented x3 and pleasant. HEENT: Normocephalic, atraumatic. Extraocular motions are intact. Pupils are equal and reactive to light. HEART: Regular rate and rhythm, no murmurs. LUNGS: Clear. ABDOMEN: Soft, nontender, bowel sounds present. EXTREMITIES: Right shoulder active range of motion to 120 degrees. Positive crepitation with active and passive range of motion, positive pain with range of motion. Strength is 4+/5 with pain and crepitation. Neurologically and neurovascularly, she is intact in her right upper extremity. DIAGNOSES: Right shoulder end-stage osteoarthritis, history of angina, hypertension, hypercholesterolemia, osteoarthritis, acid reflux, kidney stones. PLAN: The patient was advised of her diagnosis. Indications, risks, benefits, postop course have all been reviewed. The patient wishes and agrees to proceed with a right total shoulder arthroplasty. Necessary consent forms, preoperative testing and clearances will be obtained.
[~2020-02-27 07:27] MED LIST changes: -BUPIVACAINE 0.5 % 5 MG/1 ML PF 10ML VIAL ONE; +BUPIVACAINE/EPINEPHRINE 0.25% 1:200,000 30 ML VIAL ONE; -CEFAZOLIN 1000MG 1,000 MG/7.5 ML SYR IV SCH; +CEFAZOLIN 2000MG 2,000 MG/15 ML SYR IV SCH; +LACTATED RINGER'S 1,000 ML IV SCH; -LR 500ML BOLUS, THEN 15ML/HR IV SCH; -ROPIVACAINE 0.5% HCL/PF 150 MG, BUPIVACAINE 0.5% MPF 30 ML, EPINEPHrine 30MG/30ML (OR U... INSTIL SCH
[2020-02-27] MEDS ORDERED: MIDAZOLAM HCL 1 MG/ML 2ML VIAL ONE (08:47)
[2020-02-27] MEDS ORDERED: fentaNYL citrate 100 MCG/2 ML VIAL ONE (08:48)
[2020-02-27] MEDS ORDERED: DEXAMETHASONE SOD INJ 4 MG/ML VIAL ONE (08:52)
[2020-02-27] MEDS ORDERED: ONDANSETRON INJ 2 MG/ML 2 ML VIAL ONE (08:52)
[2020-02-27] MEDS ORDERED: PROPOFOL IV EMULSION 10 MG/ML 20 ML VIAL IV ONE (08:52)
[2020-02-27] MEDS ORDERED: ROCURONIUM BROMIDE 10 MG/ML 5 ML VIAL IV ONE (08:52)
[2020-02-27] MEDS ORDERED: PROMETHAZINE HCL 12.5 MG in SODIUM CHLORIDE 0.9% 50 ML IV PRN (09:27)
[2020-02-27] MEDS ORDERED: fentaNYL citrate 100 MCG/2 ML VIAL IV PRN (09:27)
[2020-02-27] MEDS ORDERED: ONDANSETRON INJ 2 MG/ML 2 ML VIAL IV PRN ×2 (09:27→15:44)
[2020-02-27] MEDS ORDERED: HYDROmorphone INJ 2 MG/ML SYR/VIAL IV PRN (09:27)
[2020-02-27] MEDS ORDERED: ePHEDrine sulfate 50 MG/ML AMP IV PRN (09:27)
[2020-02-27] MEDS ORDERED: ATROPINE SULFATE 0.1 MG/ML 10ML SYR IV PRN (09:27)
--- NOTE | 2020-02-27 10:31 | History & Physical Bridge Note ---
Date of Service February 27, 2020 History & Physical Bridge Note I have examined the patient, reviewed the History & Physical and in the interval since the performance of the History & Physical I have noted the following changes of clinical significance: no changes noted
[2020-02-27] MEDS ORDERED: BACITRACIN INJ 50,000 UNIT VIAL ONE (10:41)
[2020-02-27] MEDS ORDERED: EpINEphrine HCL INJ 1 MG/ML 1ML SYRINGE ONE (11:02)
[2020-02-27] MEDS ORDERED: ePHEDrine sulfate 50 MG/ML AMP ONE (11:31)
[2020-02-27] MEDS ORDERED: GLYCOPYRROLATE 0.2 MG/ML VIAL ONE (12:14)
[2020-02-27] MEDS ORDERED: NEOSTIGMINE METHYLSULFATE 5 MG/5 ML SYR ONE (12:14)
--- NOTE | 2020-02-27 14:06 | Post Operative Brief Note ---
Immediate Post Op Note v1 Date of Surgery February 27, 2020 Pre & Post Diagnosis Operation Date: 02/27/20 10:05 Pre-Op Diagnosis: RIGHT SHOULDER END STAGE GLENOHUMERAL OSTEOARTHRITIS, biceps tenosynovitis Post-Op Diagnosis: RIGHT SHOULDER END STAGE GLENOHUMERAL OSTEOARTHRITIS, marked biceps tenosynovitis with biceps tendinopathy subscapularis tendinopathy partial tear subscapularis I identified the patient and participated in the time-out.: Yes Procedure Operation Date: 02/27/20 10:05 Actual Procedures p Right Total Shoulder Arthroplasty(Right), biceps tenodesis, biceps tenosynovectomy.- Donald Mckoy MD Surgeon Donald Mckoy MD Hairspring Cutter ROLAND Guadalupe Estimated Blood Loss 100 Findings Consistent with Post-Op Diagnosis Specimens Humeral head Drains Hemovac Drain Anesthesia Type General Regional Complications none Disposition Accompanied Patient To Recovery: No Disposition: Recovery Room Overlapping Procedure I was immediately available: during the entire case.
--- NOTE | 2020-02-27 14:44 | Operative Report ---
Post Operative Report Pre & Post Diagnosis Operation Date: 02/27/20 10:05 Pre-Op Diagnosis: RIGHT SHOULDER END STAGE GLENOHUMERAL OSTEOARTHRITIS biceps tenosynovitis Post-Op Diagnosis: RIGHT SHOULDER END STAGE GLENOHUMERAL OSTEOARTHRITIS biceps tenosynovitis biceps tendinopathy subscapularis tendinopathy partial tear subscapularis subluxation biceps tendon I identified the patient and participated in the time-out.: Yes Procedure Operation Date: 02/27/20 10:05 Actual Procedures p Right Total Shoulder Arthroplasty(Right), biceps tenodesis, biceps te nosynovectomy- Donald Mckoy MD Surgeon Donald Mckoy MD Otolaryngology Surgeon ROLAND Guadalupe Estimated Blood Loss 100 Findings Consistent with Post-Op Diagnosis Specimens Humeral head cut Drains 2 Hemovac Anesthesia Type General Regional Complications none Disposition Accompanied Patient To Recovery: No Disposition: Recovery Room Indications 75-year-old female chronic progressive osteoarthritis in her right shoulder decreased function and increasing pain. Radiographs demonstrate [id number] in the glenohumeral joint with large osteophytes and type A wear with some bone loss. MRI demonstrates marked fluid collection anterior to subscapularis tendon with chronic tenosynovitis biceps tendon. Description of Procedure The patient was taken to the operating room and anesthetized under a general and regional block anesthesia. A towel roll was placed under the medial border of the scapula of the right shoulder. The patient's head was placed on a foam headrest and protective eyewear was placed and the extremities were well padded. The arm was draped free in order to manipulate the shoulder as necessary. The shoulder exam demonstrated [id number] crepitation 120 degrees forward elevation, 80 degrees abduction, 40 degrees external rotation, 40 degrees internal rotation. The shoulder was sterilely prepped and draped in the usual sterile fashion. An anterior deltopectoral approach was performed. A longitudinal incision was made in the interval. The skin was incised sharply and subcutaneous tissues dissected down to the fascia. The cephalic vein was identified and retracted laterally with the deltoid. Any crossing veins were tied off with silk ties and divided. The clavipectoral fascia was divided at the lateral margin of the conjoined tendon and divided up to the level of the coracoacromial ligament which was preserved. The upper 1 cm of the pectoralis was released for inferior exposure. The biceps tendon findings demonstrated very large area fluid collection surrounding the biceps tendon with chronic tenosynovitis. The area of fluid was a least 4-1/2 x 3 cm soft tissue swelling. Underlying subscapularis tendon was intact except for the upper portion adjacent to the rotator interval which looked thinned which had some synovitis bulging through it from within the joint. Supraspinatus and infraspinatus and teres minor were intact. There were no well-defined circumflex vessels. There was large spurs surrounding the bicipital groove. The rotator interval was opened up and extended down to the glenoid. The biceps tendon was noted to be widened with chronic tendinopathy and subluxed into a partial tear of the subscapularis tendon. The biceps tendon was tenodesed to the pectoralis tendon with [id number] #2 FiberWire sutures in the proximal biceps was resected. The subscapularis was taken down with a subperiosteal technique starting at the bicipital groove and subperiosteally dissecting the subscapularis tendon and the inferior glenohumeral joint which capsule was subperiosteally dissected off the inferior neck of the humerus exposing the humeral osteophytes which demonstrated large anterior to posterior inferior osteophytes. The osteophytes were excised with an artist chisel and a rongeur. The capsular release along the inferior neck of the humerus was completed. The humerus was then retracted posterior to the glenoid with a Fukuda retractor. The remainder of the biceps tendon and labrum was resected. The glenoid findings demonstrated very large hypertrophic spurs posterior superiorly superior and anterior superiorly with type a wear with some bone loss moderate with fairly concentric wear. The osteophytes were resected circumferentially. I did an anterior inferior and posterior inferior release with electrocautery on bone and a Cardona elevator with the axillary nerve continuing to be protected with the blunt Hohmann retractor inferiorly. When the releases were completed and the humeral head was exposed with some extension and external rotation and an anatomic head cut was made using the oscillating saw. The Tornier simplicity total shoulder arthroplasty was used including the perform all polyethylene Cortiloc pegged glenoid . The humerus was sized for a size 50 humeral head. The central drill pin was placed. The surface reamer was used. The reamer for the nucleus was used. The superficial cancellus bone was firm but deep to the bone there was some cysts noted that were curetted out. The trial nucleus sized to was impacted left slightly proud and the cup protector placed. The humerus was then retracted posterior to the glenoid using a Bankart retractor anteriorly and blunt Tello and posterior Tornier glenoid retractor. A central drill hole was made into the glenoid. The glenoid was sized for a size 30 radius medium Cortiloc pegged component. The glenoid was reamed and the central drill widened and the guide for the 3 peripheral peg holes was placed in the peg holes were drilled and a trial component was placed with a tight fit. The trial was removed and the glenoid was irrigated with pulsatile lavage antibiotic solution and the drill holes were dried and packed with epinephrine-soaked tampons for hemostasis. The Palacos G cement was vacuum mixed. The final component was cemented into position and held in position with pressure until the cement cured. A humeral head trial was placed. A trial reduction was performed and the shoulder was stable. The trial was removed and the humerus and canal were irrigated with antibiotic solution with bacitracin. 3 drill holes were made into the hard bone in the bicipital groove lateral to the lesser tuberosity and 3 #5 FiberWire transosseous sutures were placed for repair of the subscapularis. After further irrigation of the canal and the final components were assembled. The final components were the simplicity nucleus size 2 humeral head size 50 mm x 19 mm simplicity head. After copious irrigation bone graft obtained from the humeral head cut was placed into the bone cysts and proximal canal of the humerus to enhance press-fit fixation. Some bone graft was placed around the nucleus until was fully inserted. The nucleus was then impacted into the humerus leaving it a few millimeters proud. The 50 x 19 humeral head was then inserted onto the nucleus and then the entire construct impacted until flush with the humerus cut. Fixation was stable. The humerus was reduced to the glenoid and stability verified. The subscapularis was repaired with the #5 FiberWire sutures in a Fausto-Huang suture technique and lateral row fixation with [id number] #2 FiberWire in the soft tissue. The rotator interval was closed and maximal external rotation. Range of motion assessed at 120 degrees forward elevation 90 degrees abduction and 20 degrees of external rotation without any tension on repair. The pectoralis was then closed with [id number] #2 FiberWire suture. The sutures were passed through the biceps tendon as well to reinforce the biceps tenodesis. 2 Hemovac drains were placed. The deltopectoral interval was closed with [id number] #1 Vicryl sutures. The subcutaneous tissues were closed with interrupted 2-0 Vicryl and the skin was closed with beni and a sterile dressing was applied. The patient tolerated the procedure well. ROLAND Guadalupe my physician assistant professor of spanish, assisted in soft tissue retraction instrument management suture management and assisted in the subcutaneous and skin closure and will participate in the postoperative care the patient. I attest to the content of the Intraoperative Record and any orders documented therein. Any exceptions are noted below.
--- NOTE | 2020-02-27 15:10 | XRay Report ---
XR shoulder RT min 2V routine CLINICAL HISTORY: Post shoulder surgery COMPARISON: None. DISCUSSION: There are postsurgical changes of a total right shoulder arthroplasty. There is no disloc ation. There are overlying skin beni and surgical drains. There is gas present within the soft tis sues consistent with recent surgery. Increased markings at the right lung base are likely atelectatic IMPRESSION: Postsurgical changes of a total right shoulder arthroplasty. ACT 112: Negative or not required by law. Electronically signed by: Seth Velazquez M.D. 02/27/2020 3:09 PM
--- NOTE | 2020-02-27 15:14 | Anesthesiology Progress Note ---
Date of Service February 27, 2020 Anesthesia Post Procedure Vital Signs Vital Signs: Temp Pulse Pulse Resp BP Pulse Ox 02/27/20 15:10 103 H 12 128/77 92 02/27/20 15:00 95 H 12 129/85 92 02/27/20 14:50 77 12 130/74 93 02/27/20 14:40 102 H 16 143/86 H 93 02/27/20 14:30 99 H 16 131/79 96 02/27/20 14:20 101 H 16 135/87 96 02/27/20 14:12 36.1 C L 96 H 12 134/79 94 02/27/20 08:20 36.8 C 103 H 20 163/91 H 96 Pain Intensity Right Shoulder: Pain Intensity: 2 Transfer of Care Handoff Completed per policy Notes Mental Status: alert / awake / arousable and participated in evaluation Patient Amnestic to Procedure: Yes Nausea / Vomiting: adequately controlled Pain: adequately controlled Airway Patency, RR, SpO2: stable & adequate BP & HR: stable & adequate Hydration State: stable & adequate Anesthetic Complications: no major complications apparent and Pt Satisfied with anesthetic care
[2020-02-27] MEDS ORDERED: bisacodyL 10 MG SUPP PR PRN (15:44)
[2020-02-27] MEDS ORDERED: MAGNESIUM HYDROXIDE SUSP 30 ML UDC PO PRN (15:44)
[2020-02-27] MEDS ORDERED: FEXOFENADINE 60 MG TAB PO PRN (15:44)
[2020-02-27] MEDS ORDERED: TRAMADOL HCL 50 MG TABLET PO PRN (15:44)
[2020-02-27] MEDS ORDERED: NALOXONE HCL 0.4 MG/1 ML VIAL/CARP IV PRN (15:44)
[2020-02-27] MEDS ORDERED: NITROGLYCERIN SL 0.4 MG/TAB TAB SL PRN (15:44)
[2020-02-27] MEDS ORDERED: HYDROmorphone INJ 0.5 MG/0.5 ML SYR IV PRN (15:44)
[2020-02-27] MEDS ORDERED: POLYETHYLENE (MIRALAX) 17 GM PACK PO SCH (16:30)
[2020-02-27] MEDS: SODIUM CHLORIDE 0.9% 1000ML 1,000 ML IV SCH (16:33)
[2020-02-27] MEDS: ACETAMINOPHEN 500 MG TAB PO SCH (17:40)
--- NOTE | 2020-02-27 18:06 | Hospitalist Consultation ---
Date of Consultation February 27, 2020 Assessment & Plan (1) Post-operative state: Post TSA with Dr. Mckoy Pain control, dvt proph per primary monitor for acute blood loss (2) Hypertension: Continue Bumex, lou inhibitor prp am (3) Acid reflux: Continue home ppi (4) Hyperlipidemia: continue simvastatin (5) Ectopic atrial tachycardia: Mild asymptomatic tachycardia at present, continue to monitor Supervising Physician Co-Signing Physician Notes I personally examined the patient and verified all fuentes points of history and exam, discussed case, and agree with decision making with Blossom CANTU. feeling good fingers a little tingly but no pain vitals noted nad heent nc at mmm breathing unlabored no accessory muscles. R arm in sling post op shoulder / pain control - discussed keys for management if pain increases as nerve block wears off. ectopic atrial tachy - noted. on inderal. otherwise as above History of Present Illness Attending Physician: Donald Mckoy MD History of Present Illness Ms. Urban is post shoulder today, feeling well, eating dinner. No complaints. Allergies Allergy/AdvReac Type Severity Reaction Status Date / Time amlodipine [From [facility]] Allergy Severe Swelling Verified 02/27/20 08:02 of Lip/Tongue/Throat Influenza Virus Vaccines Allergy Severe "STIRS UP Verified 02/27/20 08:02 ARTHRITIS" morphine AdvReac Intermediate N/V Verified 02/27/20 08:02 Home Medications Home Medications Medication Instructions Recorded Confirmed Type polyethylene glycol 3350 [Miralax] 17 g PO Q2D 11/12/18 02/27/20 History bumetanide 1 mg tablet 1 mg PO QAM #90 tab 04/11/19 02/27/20 Rx propranolol 120 mg capsule,24 120 mg PO QAM #90 cap 04/11/19 02/27/20 Rx hr,extended release quinapril 40 mg tablet 40 mg PO QAM #90 tab 04/11/19 02/27/20 Rx simvastatin 20 mg tablet 20 mg PO QPM #90 tab 04/11/19 02/27/20 Rx aspirin 81 mg tablet,delayed 81 mg PO DAILY 05/06/19 02/27/20 History release nitroglycerin 0.4 mg sublingual 0.4 mg SUBLINGUAL Q5M PRN #30 tab 05/31/19 02/27/20 Rx tablet acetaminophen [Tylenol Arthritis 1,300 mg PO DAILY 02/13/20 02/27/20 History Pain] omeprazole 40 mg PO QAM 02/13/20 02/27/20 History tramadol 50 mg PO DAILY PRN 02/13/20 02/27/20 History Pretty Allergy 1 tab PO DAILY PRN 02/27/20 02/27/20 History Patient History Medical History Acid reflux Aortic root dilatation Ascending aorta dilatation Benign colonic polyp (Chronic) Benign essential hypertension (Chronic) Generalized osteoarthritis of multiple sites (Chronic) Hyperlipidemia (Chronic) Myocardial infarction Posterior RI 2008 with normal coronary arteries on cardiac cath. Surgical History H/O total hip arthroplasty right- February 2019 History of cardiac cath 2008 - no stents/angioplasty - angiographically normal coronaries - [facility]/ [facility]. [facility] History of cataract surgery bilateral History of colonoscopy History of hip surgery (Chronic) LEFT FOR FX/"ELIESER [employer] WIRES" History of total left hip arthroplasty 06/07 Family History Daughter Breast cancer Mother Coronary heart disease Hypertension Brother Hypertension Grandfather Malignant melanoma of skin Other No family history of adverse response to anesthesia Denies family history of Ovarian cancer Prostate cancer Myocardial infarction Colorectal cancer Social History Preferred Language: Sinhala Communication Ability: Effective Visual Impairment: Partially Limited Hearing Ability: Normal Trap Puller Required: No Beliefs That Will Affect Care: None marital status: Current Living Situation: Spouse current occupational status: retired Feels Safe at Home: Yes Safety Concerns: Feels Safe At This Time Smoking Status: Former smoker Tobacco Type: cigarettes ; Age Started Using Tobacco: 20 ; Age Quit Using Tobacco: 51 ; packs per day: 0.5 ; Cigarettes Per Day: quit 23 years ago ; Do You Dip or Chew Tobacco: No ; Second Hand Exposure: Yes (mother later in life) ; Tobacco Cessation Education Requested by Patient: No Hx Alcohol Use: Yes Alcohol type: wine Alcohol Intake Frequency: Daily Alcohol Intake Frequency Comment: 1 glass wine Hx Substance Use: No Childhood Exposure to Second-Hand Smoke: Yes (father) caffeine: Yes (coffee) Dental Care, Regularly: Yes Physical Activity Frequency: 3-4 Times per Week Seatbelt Use: always Sunscreen Use: No Do you think of yourself as: straight/heterosexual Review of Systems Respiratory: no cough and no dyspnea Cardiovascular: no chest pain, no palpitations and no lightheadedness Gastrointestinal: no abdominal pain, no nausea and no vomiting Genitourinary: no dysuria and no urinary hesitancy Musculoskeletal: no back pain and no joint pain Integumentary: no rash Physical Exam Physical Exam: General: no distress Eyes: normal inspection, PERLL Respiratory: chest non tender, clear to auscultation, normal breath sounds, no respiratory distress, no accessory muscle use Cardiac: irregular rate and rhythm, no rub or gallop, no murmur, no edema, no jvd GI/: active bowel sounds, no abd pain or tenderness, soft, non distended Extremities: normal range of motion, normal strength, non tender Neuro/Psych: alert and oriented x 3, normal mood and affect Skin: normal color, dry Results & Data Results & Data ([facility]) Vital Signs (Past 12 Hours) Vital Signs Temp Pulse Pulse Resp BP Pulse Ox 02/27/20 17:44 36.9 C 101 H 93 H 120/74 93 02/27/20 16:47 36.6 C 96 H 17 117/78 93 02/27/20 16:15 36.6 C 103 H 17 122/76 94 02/27/20 15:20 36.4 C L 183 H 12 131/73 92 02/27/20 15:10 103 H 12 128/77 92 02/27/20 15:00 95 H 12 129/85 92 02/27/20 14:50 77 12 130/74 93 02/27/20 14:40 102 H 16 143/86 H 93 02/27/20 14:30 99 H 16 131/79 96 02/27/20 14:20 101 H 16 135/87 96 02/27/20 14:12 36.1 C L 96 H 12 134/79 94 02/27/20 08:20 36.8 C 103 H 20 163/91 H 96 PG Care Time/CCT Total # of Minutes Spent Total Time Spent with Patient: Total time spent is greater than 50% in coordination of care (as documented) at patient's floor/unit and/or counseling patient: Coding Level of Care Code 02699 Inpt Consult Level 4 Diagnoses Post-operative state Z98.890 Hypertension I10 Acid reflux K21.9 Hyperlipidemia E78.5 Ectopic atrial tachycardia I47.1
[2020-02-27] MEDS: CEFAZOLIN 2000MG 2,000 MG/15 ML SYR IV SCH (19:38)
[2020-02-27] MEDS: DOCUSATE SODIUM 100 MG CAP PO SCH (20:10)
[2020-02-27] MEDS: SIMVASTATIN 20 MG TAB PO SCH (20:10)
[2020-02-27] MEDS: SENNA 8.6 MG TAB PO SCH (20:10)
[2020-02-28] MEDS: ACETAMINOPHEN 500 MG TAB PO SCH ×4 (00:20→23:30)
[2020-02-28] MEDS: CEFAZOLIN 2000MG 2,000 MG/15 ML SYR IV SCH (02:14)
[2020-02-28] MEDS: SODIUM CHLORIDE 0.9% 1000ML 1,000 ML IV SCH (02:26)
[2020-02-28] MEDS: OXYCODONE HCL IR 5 MG TAB (IMMEDIATE RELEASE) PO PRN ×2 (06:01→13:37)
[2020-02-28 06:24] LABS: Hematocrit (blood only) 32.3 % (37-47); Hemoglobin 10.5 g/dL (12.0-16.0); Immature Granulocytes # (auto) 0.02 K/uL (0.00-0.02); Immature Granulocytes % (auto) 0.2 %; Lymphocytes # (auto) 1.39 K/uL (1.2-3.4); Lymphocytes % (auto) 12.4 %; Mean Corpuscular Hemoglobin 31.2 pg (25-34); Mean Corpuscular Hgb Conc 32.5 g/dL (32-36); Mean Corpuscular Volume 95.8 fL (80-100); Mean Platelet Volume 11.1 fL (7.4-10.4); Monocytes # (auto) 0.73 K/uL (0.11-0.59); Monocytes % (auto) 6.5 %; Neutrophils # (auto) 9.06 K/uL (1.4-6.5); Neutrophils % (auto) 80.9 %; Platelet Count 178 K/uL (130-400); RDW Coefficient of Variation 13.5 % (11.5-14.5); Red Blood Count 3.37 M/uL (4.2-5.4)
[2020-02-28 06:54] LABS: BUN Creatinine Ratio 23.4 (10-20); Calcium 8.1 mg/dl (8.5-10.1); Creatinine Clr Calc Pharmacy 70.7 ml/min; Est GFR (African American) 92.1; Est GFR (Non-African American) 79.4
--- NOTE | 2020-02-28 07:46 | Anesthesiology Progress Note ---
Date of Service February 28, 2020 Anesthesia Post Procedure Vital Signs Vital Signs: Temp Pulse Pulse Resp BP Pulse Ox 02/28/20 07:29 36.5 C 75 16 117/68 94 02/28/20 03:39 36.6 C 102 H 16 123/71 91 02/28/20 00:12 36.5 C 84 16 120/74 92 02/27/20 18:46 37.0 C 93 H 17 139/73 93 02/27/20 17:44 36.9 C 101 H 93 H 120/74 93 02/27/20 16:47 36.6 C 96 H 17 117/78 93 02/27/20 16:15 36.6 C 103 H 17 122/76 94 02/27/20 15:45 36.8 C 104 H 16 131/67 92 02/27/20 15:20 36.4 C L 183 H 12 131/73 92 02/27/20 15:10 103 H 12 128/77 92 02/27/20 15:00 95 H 12 129/85 92 02/27/20 14:50 77 12 130/74 93 02/27/20 14:40 102 H 16 143/86 H 93 02/27/20 14:30 99 H 16 131/79 96 02/27/20 14:20 101 H 16 135/87 96 02/27/20 14:12 36.1 C L 96 H 12 134/79 94 02/27/20 08:20 36.8 C 103 H 20 163/91 H 96 Pain Intensity Right Shoulder: Pain Intensity: 7 Notes Mental Status: alert / awake / arousable and participated in evaluation Patient Amnestic to Procedure: Yes Nausea / Vomiting: adequately controlled Pain: improving with treatment Airway Patency, RR, SpO2: stable & adequate BP & HR: stable & adequate Hydration State: stable & adequate Anesthetic Complications: no major complications apparent
[2020-02-28] MEDS: ASPIRIN 81 MG ECTAB PO SCH (08:42)
[2020-02-28] MEDS: PANTOprazole 40 MG TAB PO SCH (08:42)
[2020-02-28] MEDS: MULTIVITAMIN TAB PO SCH (08:42)
[2020-02-28] MEDS: DOCUSATE SODIUM 100 MG CAP PO SCH ×2 (08:42→20:13)
[2020-02-28] MEDS: PROPRANOLOL HCL 60 MG LA CAP PO SCH (08:42)
[2020-02-28] MEDS ORDERED: ENALAPRIL MALEATE 10 MG TAB PO SCH (09:00)
[2020-02-28] MEDS ORDERED: BUMETANIDE 1 MG TAB PO SCH (09:00)
--- NOTE | 2020-02-28 09:00 | Orthopedic Progress Note ---
Date of Service February 28, 2020 Assessment & Plan (1) Osteoarthritis of right shoulder: Postop day 1 status post right total shoulder arthroplasty. PT/OT protocols. Nonweightbearing on the right upper extremity. DVT prophylaxis with aspirin and SCDs Continue current pain regimen. DC planning-patient planning for home health services upon discharge. Admission and Anticipated Discharge Date Admission Date: February 27, 2020 Subjective Postop day 1 Patient sitting up in bed. Awake alert. Feeling well this morning. Pain is controlled. Dates that she had some numbness in her hand which is now resolved but still has a little bit of [id number] in her fingertips. Shortness of breath, chest pain, lightheadedness. Physical Exam Physical Exam: Dressings are clean, dry, and intact. Sling is in place. She has good range of motion of her right hand and fingers as well as the right wrist. Sensation is intact with some slight [id number] feelings in her fingertips. Cap refills less than 2 seconds. Hemovac drain present and functioning. Drained 100 mL's from previous shift. Results & Data ([facility]) Vital Signs (Past 12 Hours) Vital Signs Temp Pulse Resp BP Pulse Ox 02/28/20 07:29 36.5 C 75 16 117/68 94 02/28/20 03:39 36.6 C 102 H 16 123/71 91 02/28/20 00:12 36.5 C 84 16 120/74 92 Laboratory Results Laboratory Results WBC 11.20 K/uL (4.8-10.8) H 02/28/20 05:48 RBC 3.37 M/uL (4.2-5.4) L 02/28/20 05:48 Hgb 10.5 g/dL (12.0-16.0) L 02/28/20 05:48 Hct 32.3 % (37-47) L 02/28/20 05:48 MCV 95.8 fL (80-100) 02/28/20 05:48 MCH 31.2 pg (25-34) 02/28/20 05:48 MCHC 32.5 g/dL (32-36) 02/28/20 05:48 RDW Std Deviation 47.0 fL (36.4-46.3) H 02/28/20 05:48 RDW Coeff of Diane 13.5 % (11.5-14.5) 02/28/20 05:48 Plt Count 178 K/uL (130-400) 02/28/20 05:48 MPV 11.1 fL (7.4-10.4) H 02/28/20 05:48 Immature Gran % (Auto) 0.2 % 02/28/20 05:48 Neut % (Auto) 80.9 % 02/28/20 05:48 Lymph % (Auto) 12.4 % 02/28/20 05:48 Iron % (Auto) 6.5 % 02/28/20 05:48 Eos % (Auto) 0.0 % 02/28/20 05:48 Baso % (Auto) 0.0 % 02/28/20 05:48 Neut # (Auto) 9.06 K/uL (1.4-6.5) H 02/28/20 05:48 Lymph # (Auto) 1.39 K/uL (1.2-3.4) 02/28/20 05:48 Iron # (Auto) 0.73 K/uL (0.11-0.59) H 02/28/20 05:48 Eos # (Auto) 0.00 K/uL (0-0.5) 02/28/20 05:48 Baso # (Auto) 0.00 K/uL (0-0.2) 02/28/20 05:48 Immature Gran # (Auto) 0.02 K/uL (0.00-0.02) 02/28/20 05:48 PT 10.6 Seconds (9.0-12.0) 02/14/20 14:23 INR 1.0 (0.9-1.1) 02/14/20 14:23 APTT 26.5 Seconds (21.0-31.0) 02/14/20 14:23 PTT Ratio 0.9 02/14/20 14:23 Sodium 141 mmol/L (136-145) 02/28/20 05:48 Potassium 4.0 mmol/L (3.5-5.1) 02/28/20 05:48 Chloride 108 mmol/L (98-107) H 02/28/20 05:48 Carbon Dioxide 28 mmol/L (21-32) 02/28/20 05:48 Anion Gap 5.0 (3-11) 02/28/20 05:48 BUN 17 mg/dl (7-18) 02/28/20 05:48 Creatinine 0.73 mg/dl (0.6-1.2) 02/28/20 05:48 Est Cr Clr Drug Dosing 70.7 ml/min 02/28/20 05:48 Est GFR ( Amer) 92.1 02/28/20 05:48 Est GFR (Non-Af Amer) 79.4 02/28/20 05:48 BUN/Creatinine Ratio 23.4 (10-20) H 02/28/20 05:48 Glucose 121 mg/dl (70-99) H 02/28/20 05:48 Estimat Average Glucose 120 mg/dl 02/14/20 14:23 Hemoglobin A1c 5.8 % (4.5-5.6) H 02/14/20 14:23 Calcium 8.1 mg/dl (8.5-10.1) L 02/28/20 05:48 Albumin 4.0 gm/dl (3.4-5.0) 02/14/20 14:23 Urine Color Yellow 02/14/20 14:23 Urine Appearance Clear (Clear) 02/14/20 14:23 Urine pH 7.0 (4.5-7.5) 02/14/20 14:23 Ur Specific [place] 1.021 (1.000-1.030) 02/14/20 14:23 Urine Protein Negative (Negative) 02/14/20 14:23 Urine Glucose (UA) Negative (Negative) 02/14/20 14:23 Urine Ketones Negative (Negative) 02/14/20 14:23 Urine Blood Negative (Negative) 02/14/20 14:23 Urine Nitrite Negative (Negative) 02/14/20 14:23 Urine Bilirubin Negative (Negative) 02/14/20 14:23 Urine Urobilinogen Negative (Negative) 02/14/20 14:23 Ur Leukocyte Esterase Negative (Negative) 02/14/20 14:23 Blood Type B Positive 02/14/20 14:23 Antibody Screen NEGATIVE 02/14/20 14:23
--- NOTE | 2020-02-28 12:54 | Hospitalist Progress Note ---
Date of Service February 28, 2020 Assessment & Plan (1) Post-operative state: Post TSA with Dr. Mckoy Pain control, dvt proph per primary (2) Hypertension: Continue Bumex, lou inhibitor Kidney function, electrolytes wnl borderline hypotension this afternoon, will repeat prp am, continue to monitor (3) Acid reflux: Continue home ppi (4) Hyperlipidemia: continue simvastatin (5) Ectopic atrial tachycardia: Mild asymptomatic tachycardia at times, continue to monitor (6) Acute blood loss anemia: Hgb 10.5, down from baseline 12.5, asymptomatic Thank you for the consult, medicine will sign off at this time. Please call with any questions or concerns. Admission and Anticipated Discharge Date Admission Date: February 27, 2020 Supervising Physician Co-Signing Physician Notes chart reviewed and case d/w S Mabel CANTU. as above Subjective Ms. Urban is feeling well, up to a chair. No complaints. ROS Constitutional: no chills, aches, sweats or fever Respiratory: no sob,cough, sputum, or wheezing Cardiac: no chest pain, palpitations, edema, orthopnea or lightheadedness GI: no abdominal pain, nausea, vomiting, diarrhea or constipation : no dysuria or hesitancy Extremities: no joint pain or weakness Skin: no rash All other systems reviewed and negative Physical Exam Physical Exam: General: no distress Eyes: normal inspection, PERLL Respiratory: chest non tender, clear to auscultation, normal breath sounds, no respiratory distress, no accessory muscle use Cardiac: regular rate and rhythm, no rub or gallop, no murmur, no edema, no jvd GI/: active bowel sounds, no abd pain or tenderness, soft, non distended Extremities: normal range of motion, normal strength, non tender Neuro/Psych: alert and oriented x 3, normal mood and affect Skin: normal color, dry Results & Data Results & Data ([facility]) Vital Signs (Past 12 Hours) Vital Signs Temp Pulse Resp BP Pulse Ox 02/28/20 11:14 36.6 C 99 H 18 99/61 L 91 02/28/20 07:29 36.5 C 75 16 117/68 94 02/28/20 03:39 36.6 C 102 H 16 123/71 91 PG Care Time/CCT Total # of Minutes Spent Total Time Spent with Patient: Total time spent is greater than 50% in coordination of care (as documented) at patient's floor/unit and/or counseling patient: Coding Level of Care Code 07867 Subseq Hosp Care Lvl 2 Diagnoses Post-operative state Z98.890 Hypertension I10 Acid reflux K21.9 Hyperlipidemia E78.5 Ectopic atrial tachycardia I47.1 Acute blood loss anemia D62
[2020-02-28] MEDS ORDERED: SODIUM CHLORIDE 0.9% 500 ML IV SCH (18:35)
[2020-02-28] MEDS: SIMVASTATIN 20 MG TAB PO SCH (20:13)
[2020-02-28] MEDS: SENNA 8.6 MG TAB PO SCH (20:13)
[2020-02-29 06:21] LABS: Basophils # (auto) 0.01 K/uL (0-0.2); Basophils % (auto) 0.1 %; Eosinophils % (auto) 0.9 %; Hematocrit (blood only) 35.6 % (37-47); Hemoglobin 11.3 g/dL (12.0-16.0); Immature Granulocytes # (auto) 0.03 K/uL (0.00-0.02); Immature Granulocytes % (auto) 0.3 %; Lymphocytes # (auto) 2.77 K/uL (1.2-3.4); Lymphocytes % (auto) 26.3 %; Mean Corpuscular Hemoglobin 31.6 pg (25-34); Mean Corpuscular Hgb Conc 31.7 g/dL (32-36); Mean Corpuscular Volume 99.4 fL (80-100); Mean Platelet Volume 11.4 fL (7.4-10.4); Monocytes # (auto) 0.88 K/uL (0.11-0.59); Monocytes % (auto) 8.3 %; Neutrophils # (auto) 6.75 K/uL (1.4-6.5); Neutrophils % (auto) 64.1 %; Platelet Count 196 K/uL (130-400); RDW Coefficient of Variation 13.9 % (11.5-14.5); RDW Standard Deviation 49.5 fL (36.4-46.3); Red Blood Count 3.58 M/uL (4.2-5.4); White Blood Count 10.54 K/uL (4.8-10.8)
[2020-02-29] MEDS: OXYCODONE HCL IR 5 MG TAB (IMMEDIATE RELEASE) PO PRN ×2 (06:36→11:22)
[2020-02-29 06:56] LABS: Calcium 8.6 mg/dl (8.5-10.1); Creatinine Clr Calc Pharmacy 65.4 ml/min; Est GFR (African American) 83.7; Est GFR (Non-African American) 72.2; Potassium 3.7 mmol/L (3.5-5.1)
--- NOTE | 2020-02-29 08:18 | Orthopedic Progress Note ---
Date of Service February 29, 2020 Assessment & Plan (1) Osteoarthritis of right shoulder: Postop day 2 status post right total shoulder arthroplasty. PT/OT protocols. Nonweightbearing on the right upper extremity. DVT prophylaxis with aspirin and SCDs Continue current pain regimen. DC planning-patient planning for home health services upon discharge later today Admission and Anticipated Discharge Date Admission Date: February 27, 2020 Subjective Patient seen sitting in bedside chair. She is doing well this morning, sore but controlled with ordered medication. No complaints. Denies chest pain, sob, dizziness, light headedness, n/v/d. Review of Systems Review of Systems: All systems reviewed & are unremarkable except as noted in HPI & below Physical Exam Physical Exam: Left shoulder incision is c/d/i. Sling in place. Fingers are mobile with good bag shaker strength. Distally n/v statu and sensation intact. Constitutional: well developed and well nourished; no acute distress Results & Data ([facility]) Vital Signs (Past 12 Hours) Vital Signs Temp Pulse Resp BP Pulse Ox 02/29/20 06:37 36.7 C 72 15 121/69 92 02/28/20 23:15 36.5 C 73 15 106/71 94
[2020-02-29] MEDS: PROPRANOLOL HCL 60 MG LA CAP PO SCH (08:49)
[2020-02-29] MEDS: MULTIVITAMIN TAB PO SCH (08:50)
[2020-02-29] MEDS: ACETAMINOPHEN 500 MG TAB PO SCH (08:50)
[2020-02-29] MEDS: DOCUSATE SODIUM 100 MG CAP PO SCH (08:50)
[2020-02-29] MEDS: PANTOprazole 40 MG TAB PO SCH (08:50)
[2020-02-29] MEDS: ASPIRIN 81 MG ECTAB PO SCH (08:50)
--- NOTE | 2020-03-08 23:40 | Discharge Summary (DS) ---
HISTORY OF PRESENT ILLNESS: This is a 75-year-old female patient of Dr. Mckoy's complaining of chronic right shoulder pain, longstanding, progressively getting worse. The patient has failed conservative treatment and she elected to proceed with a right total shoulder arthroplasty. PAST MEDICAL HISTORY: Angina, hypertension, hypercholesterolemia, osteoarthritis, acid reflux, kidney stones. POSTOPERATIVE COURSE: The patient underwent a right total shoulder arthroplasty and biceps tenodesis on 02/27/2020. She was followed closely with medical consultation, DVT prophylaxis in the form of aspirin, physical therapy and pain control. She did have some mild hypotension postoperative day #1. Medical consultation did hold some of her blood pressure medications. Upon discharge, she was stable as far as her blood pressures. Otherwise, an uneventful postoperative course. PHYSICAL EXAMINATION: On discharge, patient's right shoulder incision was clean, dry and intact. [place] were intact. Skin edges were approximated well. There was no redness or drainage. Elbow, wrist and fingers were mobile. Sling was intact. Neurologically and neurovascularly intact right upper extremity. DIAGNOSES: Status post right total shoulder arthroplasty and biceps tenodesis, angina, hypertension, hypercholesterolemia, osteoarthritis, acid reflux, kidney stones. PLAN: The patient was discharged home with home health services. She will do limited physical therapy. She will continue her preadmission medications with the addition of aspirin and pain medication. She will follow up as scheduled as an outpatient with Dr. Mckoy.
== END 2020-02-29 11:51 | disposition home health service (06) | DRG 483 ==
LOC: ASU 07:27 → 3E 14:17